=== PATIENT | female | born 1950 | race Caucasian/White ===

== ENCOUNTER 2018-11-03 09:00 | Emergency (ER) | payer MEDICARE, OTHER ==
[2018-11-03 09:26] VITALS: BP 111/38
--- NOTE | 2018-11-03 10:45 | UC ---
Skin Complaint HPI - HPI Summary HPI Summary: about a week hx of facial rash some mild pain swelling and tenderness below left eye now with tender left anterior cervical LN using new facial product - History of Current Complaint Chief Complaint: UCSkin Time Seen by Provider: 11/03/18 10:32 Stated Complaint: FACIAL SWELLING/SKIN CONCERN,SORE THROAT Hx Obtained From: Patient Onset/Duration: Gradual Onset, Lasting Days Timing: Constant Onset Severity: Mild Current Severity: Moderate Pain Intensity: 1 Location: Face Character: Pain, Redness, Raised Aggravating Factor(s): Nothing Alleviating Factor(s): Nothing Associated Signs & Symptoms: Positive: Rash, Tenderness. Negative: Nausea, Vomiting, Numbness, Thirst, Diaphoresis, Weakness, Pallor, Shivering, Difficulty Breathing, Fever, Chills, Cough, Wheezing, Chest Pain, Hoarseness, Throat Tightening, Abdominal Pain, Lightheadedness, Syncope, Drainage, Bruising , Red Streaks, Joint Swelling - Allergy/Home Medications Allergies/Adverse Reactions: Allergies Allergy/AdvReac Type Severity Reaction Status Date / Time No Known Allergies Allergy Verified 11/03/18 09:21 Home Medications: Home Medications LoraTADine TAB(NF) [Claritin 10 MG TAB(NF)] 10 mg PO DAILY PRN 11/03/18 [ History Confirmed 11/03/18] Simvastatin TAB(NF) [Zocor(NF)] 10 mg PO DAILY 11/03/18 [History Confirmed 11/03] PMH/Surg Hx/FS Hx/Imm Hx Previously Healthy: Yes - Surgical History Surgical History: None - Family History Known Family History: Positive: Hypertension - Social History Alcohol Use: Occasionally Substance Use Type: None Smoking Status (MU): Never Smoked Tobacco Review of Systems All Other Systems Reviewed And Are Negative: Yes Constitutional: Positive: Negative Skin: Positive: Rash Eyes: Positive: Negative ENT: Positive: Negative Respiratory: Positive: Negative Cardiovascular: Positive: Negative Gastrointestinal: Positive: Negative Genitourinary: Positive: Negative Motor: Positive: Negative Neurovascular: Positive: Negative Musculoskeletal: Positive: Negative Neurological: Positive: Negative Psychological: Positive: Negative Physical Exam Triage Information Reviewed: Yes Appearance: Well-Appearing, No Pain Distress, Well-Nourished Vital Signs: Initial Vital Signs Temp 97.4 F 11/03/18 09:19 Pulse 70 11/03/18 09:19 Resp 16 11/03/18 09:19 BP 111/38 11/03/18 09:19 Pulse Ox 100 11/03/18 09:19 Vital Signs Reviewed: Yes Eyes: Positive: Conjunctiva Clear. Negative: Conjunctiva Inflamed, Discharge ENT: Positive: Hearing grossly normal, Uvula midline. Negative: Nasal congestion, Nasal drainage, Tonsillar swelling, Tonsillar exudate, Hoarse voice Dental Exam: Normal Neck: Positive: Supple, Nontender, Enlarged Nodes @ - left anterior lymph node Respiratory: Positive: Lungs clear, Normal breath sounds, No respiratory distress, No accessory muscle use Cardiovascular: Positive: RRR, No Murmur Musculoskeletal: Positive: ROM Intact, No Edema Neurological: Positive: Alert Skin Exam: Other - see image Images Head: 1 - red raised 2 - red/raised , tender NO VESICLES 3 - swollen/tender, LN 4 - no eye redness or irritation/tearing Course/Dx - Diagnoses Provider Diagnosis: Rash of face Discharge - Sign-Out/Discharge Documenting (check all that apply): Patient Departure All imaging exams completed and their final reports reviewed: No Studies - Discharge Plan Condition: Stable Disposition: HOME Prescriptions: Cephalexin CAP* [Keflex CAP*] 500 mg PO TID #21 cap Patient Education Materials: Acute Rash (ED) Referrals: Omega Herrera DO [Primary Care Provider] - 5 Days Additional Instructions: I am unsure of the cause of your rash we will start antibiotics in case this is due to infection Recheck if you develop blisters Recheck for fever apply no facial products to area you can use aquaphor healing ointment see your MD late this week for recheck - Billing Disposition and Condition Condition: STABLE Disposition: Home
== END 2018-11-03 10:54 | disposition home or self-care (01) ==
LOC: UCCORT 09:00
DX: R21 Rash and other nonspecific skin eruption (principal)
CPT/HCPCS: 99212; G0463